=== PATIENT | female | born 1950 | race Hispanic/Latino ===

== ENCOUNTER 2018-11-28 18:23 | Emergency (ER) | payer MEDICAID, MEDICARE ==
--- NOTE | 2018-11-28 18:33 | Emergency Department Report ---
ED Abdominal Pain HPI - General Stated Complaint: ABD PAIN Time Seen by Provider: 11/28/18 18:32 Source: patient Mode of arrival: Stretcher Limitations: No Limitations - History of Present Illness Initial Comments: Patient is a 68-year-old female that presents emergency room with complaints of abdominal pain. Patient states her abdominal pain started 3 weeks ago but is worsening. Patient states she is currently at a psychiatric facility for 1013. Patient states she started having nausea and vomiting 3 days ago. Patient states her pain is worsening. Patient states her pain is 10 out of 10. Patient states it is periumbilical and nonradiating. Patient states she is able to hold some fluids down. Patient states the pain is worse with vomiting and movement and palpation. Patient states the pain is better with rest. MD Complaint: abdominal pain -: Sudden, week(s) Location: periumbilical Radiation: none Migration to: no migration Severity: severe Severity scale (0 -10): 10 Quality: stabbing Consistency: constant Improves With: rest Worsens With: vomiting, movement Associated Symptoms: nausea, vomiting. denies: diarrhea, fever, chills, constipation, dysuria, hematemesis, hematochezia, melena, hematuria, anorexia, syncope - Related Data LMP (females 10-50): unknown Previous Rx's Medication Instructions Recorded Last Taken Type Ciprofloxacin HCl [Ciprofloxacin 500 mg PO Q12HR 10 Days #20 tab 11/28/18 Unknown Rx TAB] Ondansetron [Zofran Odt] 4 mg PO Q6HR PRN #15 tab.rapdis 11/28/18 Unknown Rx Allergies Allergy/AdvReac Type Severity Reaction Status Date / Time No Known Allergies Allergy Verified 11/28/18 18:48 ED Review of Systems ROS: Stated complaint: ABD PAIN Other details as noted in HPI Constitutional: denies: chills, fever Eyes: denies: eye pain, eye discharge, vision change ENT: denies: ear pain, throat pain Respiratory: denies: cough, shortness of breath, wheezing Cardiovascular: denies: chest pain, palpitations Endocrine: no symptoms reported Gastrointestinal: abdominal pain, nausea, vomiting. denies: diarrhea Genitourinary: denies: urgency, dysuria, discharge Musculoskeletal: denies: back pain, joint swelling, arthralgia Skin: denies: rash, lesions Neurological: denies: headache, weakness, paresthesias Psychiatric: denies: anxiety, depression Hematological/Lymphatic: denies: easy bleeding, easy bruising ED Past Medical Hx - Past Medical History Previous Medical History?: Yes Hx Hypertension: Yes Hx CVA: Yes Hx Seizures: Yes Hx Psychiatric Treatment: Yes Additional medical history: hypoThyroidism. Lymphoma in remission since 2016. Anemia. Insomnia. Anxiety. Major depressive disorder. - Surgical History Past Surgical History?: No - Family History Family history: no significant - Social History Smoking Status: Never Smoker Substance Use Type: None - Medications Home Medications: Home Medications Medication Instructions Recorded Confirmed Last Taken Type Ciprofloxacin HCl [Ciprofloxacin 500 mg PO Q12HR 10 Days #20 tab 11/28/18 Unknown Rx TAB] Ondansetron [Zofran Odt] 4 mg PO Q6HR PRN #15 tab.rapdis 11/28/18 Unknown Rx ED Physical Exam - General Limitations: No Limitations General appearance: alert, in no apparent distress - Head Head exam: Present: atraumatic, normocephalic - Eye Eye exam: Present: normal appearance, PERRL Pupils: Present: normal accommodation - ENT ENT exam: Present: mucous membranes moist - Neck Neck exam: Present: normal inspection - Respiratory Respiratory exam: Present: normal lung sounds bilaterally. Absent: respiratory distress - Cardiovascular Cardiovascular Exam: Present: regular rate, normal rhythm. Absent: systolic murmur, diastolic murmur, rubs, gallop - GI/Abdominal GI/Abdominal exam: Present: soft, tenderness (periumbilical tenderness), normal bowel sounds - Extremities Exam Extremities exam: Present: normal inspection - Back Exam Back exam: Present: normal inspection - Neurological Exam Neurological exam: Present: alert, oriented X3 - Psychiatric Psychiatric exam: Present: normal affect, normal mood - Skin Skin exam: Present: warm, dry, intact, normal color. Absent: rash ED Course Vital Signs 11/28/18 11/28/18 18:40 18:46 Temperature 98.7 F Pulse Rate 84 Respiratory 18 Rate Blood Pressure 172/91 Blood Pressure 172/91 151/81 [Left] O2 Sat by Pulse 98 Oximetry - Reevaluation(s) Reevaluation #1: I discussed all results with patient. Patient is stable for discharge. Patient will be discharged home. Patient agrees with plan of care. Patient given discharge instructions. Patient voiced understanding discharge instructions. Patient tolerated by mouth intake. 11/28/18 20:43 Reevaluation #2: Patient states she's had a history of high blood pressure but has not required any medications. Patient's blood pressures elevated is most likely secondary to her situation. Patient will be discharged back to her psych facility and patient is stable to have her blood pressure managed at the psych facility. 11/28/18 21:21 ED Medical Decision Making - Lab Data Result diagrams: 11/28/18 19:06 11/28/18 19:06 - Radiology Data Radiology results: report reviewed CT ABDOMEN AND PELVIS WITH CONTRAST HISTORY: Abdominal Pain. Lower abdominal pain and vomiting today COMPARISON: None. TECHNIQUE: CT images of the abdomen and pelvis were obtained following administration of intravenous contrast. All CT scans at this location are performed using CT dose reduction for ALARA by means of automated exposure control. CONTRAST: 100 ml of intravenous contrast administered. FINDINGS: Lungs/bones: There is mild bibasilar atelectasis. Degenerative changes are present in the spine with no acute osseous abnormality identified. Abdomen/pelvis: The gallbladder appears to be surgically absent and there is pneumobilia likely consistent with previous sphincterotomy. There is mild mid to distal diffuse small bowel mucosal enhancement and fluid-filled appearance without obstruction. The spleen, pancreas, adrenals, and kidneys appear unremarkable. 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 There is a 1.5 cm polyp in the duodenal bulb on axial image #63. The remainder the proximal GI tract is unremarkable. Urinary bladder is unremarkable. Uterus is surgically absent. No pelvic free fluid and no acute colonic abnormality in this patient with mild diverticulosis. IMPRESSION: 1. Small bowel findings as above are nonspecific but can be seen with enteritis. 2. Incidental findings as above including a 1.5 cm duodenal polyp. - Medical Decision Making Patient is a 68-year-old female that presents emergency room with periumbilical ago. A nausea vomiting. Patient's CT done. Patient's CT is consistent with gastroenteritis. Patient's labs unremarkable except for patient found to have a UTI. Patient treated with antibiotics and Zofran. Patient presented to the ER from a local psychiatric facility. Patient was DC'd back. Psychiatric facility. Patient also found to be hypertensive. Patient's diet and lifestyle. Patient given Norvasc 2.5 mg to manage her blood pressure. - Differential Diagnosis abdominal pain. Gastroneuritis. Nausea and vomiting. Critical care attestation.: If time is entered above; I have spent that time in minutes in the direct care of this critically ill patient, excluding procedure time. ED Disposition Clinical Impression: Gastroenteritis UTI (urinary tract infection) Qualifiers: Urinary tract infection type: site unspecified Hematuria presence: without hematuria Qualified Code(s): N39.0 - Urinary tract infection, site not specified Abdominal pain Qualifiers: Abdominal location: periumbilical Qualified Code(s): R10.33 - Periumbilical pain Nausea & vomiting Qualifiers: Vomiting type: unspecified Vomiting Intractability: non-intractable Qualified Code(s): R11.2 - Nausea with vomiting, unspecified Hypertension Qualifiers: Hypertension type: essential hypertension Qualified Code(s): I10 - Essential (primary) hypertension Disposition: TO HOME OR SELFCARE Is pt being admited?: No Does the pt Need Aspirin: No Condition: Stable Instructions: Gastroenteritis (ED), Acute Nausea and Vomiting (ED), Abdominal Pain (ED), DASH Eating Plan (ED), Hypertension (ED) Additional Instructions: to be discharged from the ER or return to her psychiatric facility. Patient to follow up with primary care in 2-3 days. Patient to return to ER if condition worsens. Patient to take meds as directed. Patient increase water. Patient to eat a BRAT diet. Patient to take Tylenol or ibuprofen when necessary for pain. Prescriptions: Ciprofloxacin HCl [Ciprofloxacin TAB] 500 mg PO Q12HR 10 Days #20 tab Ondansetron [Zofran Odt] 4 mg PO Q6HR PRN #15 tab.rapdis PRN Reason: Nausea And Vomiting Referrals: BEKA FORRESTER MD [Referring] - 3-5 Days Time of Disposition: 20:46
[2018-11-28] MEDS ORDERED: ZOFRAN IV ONE (18:41)
[2018-11-28] MEDS ORDERED: NACL 0.9% 1000 ML 1,000 ML IV ONE (18:41)
[2018-11-28 18:56] VITALS: BP 151/81
[2018-11-28 18:56] LABS: Bilirubin,Urine NEG (Negative); Blood,Urine NEG (Negative); Color,Urine Yellow (Yellow); Protein,Urine <15 mg/dL mg/dL (Negative); Urobilinogen,Urine < 2.0 mg/dL (<2.0); WBC,Urine < 1.0 /HPF (0.0-6.0)
[2018-11-28 18:58] LABS: RBC,Urine < 1.0 /HPF (0.0-6.0)
[2018-11-28 19:16] LABS: Basophils # (Auto) 0.1 K/mm3 (0.0-0.1); Basophils % (Auto) 1.2 % (0.0-1.8); Eosinophils # (Auto) 0.2 K/mm3 (0.0-0.4); Hematocrit 28.7 % (30.3-42.9); Hemoglobin 9.3 gm/dl (10.1-14.3); Lymphocytes # (Auto) 2.6 K/mm3 (1.2-5.4); Mean Corpuscular HGB Conc 32 % (30-34); Mean Corpuscular Volume 77 fl (79-97); Monocytes # (Auto) 0.7 K/mm3 (0.0-0.8); Monocytes % (Auto) 9.7 % (0.0-7.3); Platelet Count 354 K/mm3 (140-440); Red Blood Count 3.71 M/mm3 (3.65-5.03); Red Cell Distribution Width 16.9 % (13.2-15.2)
[2018-11-28 19:40] LABS: Alanine Aminotransferase 16 units/L (7-56); Albumin 3.8 g/dL (3.9-5); BUN/Creatinine Ratio 25; Blood Urea Nitrogen 15 mg/dL (7-17); Calcium 8.6 mg/dL (8.4-10.2); Hemolysis Index 0
[2018-11-28] MEDS ORDERED: DILAUDID IV ONE (19:48)
[2018-11-28 20:04] LABS: Bilirubin,Direct < 0.2 mg/dL (0-0.2)
--- NOTE | 2018-11-28 20:34 | Cat Scan Report ---
CT ABDOMEN AND PELVIS WITH CONTRAST HISTORY: Abdominal Pain. Lower abdominal pain and vomiting today COMPARISON: None. TECHNIQUE: CT images of the abdomen and pelvis were obtained following administration of intravenous contrast. All CT scans at this location are performed using CT dose reduction for ALARA by means of automated exposure control. CONTRAST: 100 ml of intravenous contrast administered. FINDINGS: Lungs/bones: There is mild bibasilar atelectasis. Degenerative changes are present in the spine with no acute osseous abnormality identified. Abdomen/pelvis: The gallbladder appears to be surgically absent and there is pneumobilia likely cons istent with previous sphincterotomy. There is mild mid to distal diffuse small bowel mucosal enhancem ent and fluid-filled appearance without obstruction. The spleen, pancreas, adrenals, and kidneys appear unremarkable. 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 There is a 1.5 cm polyp in the duodenal bulb on axial image #63. The remainder the proximal GI tract is unremarkable. Urinary bladder is unremarkable. Uterus is surgically absent. No pelvic free fluid and no acute colon ic abnormality in this patient with mild diverticulosis. IMPRESSION: 1. Small bowel findings as above are nonspecific but can be seen with enteritis. 2. Incidental findings as above including a 1.5 cm duodenal polyp. Signer Name: Rush Burt MD Signed: 11/28/2018 8:30 PM Workstation Name: [id number]
[2018-11-28] MEDS ORDERED: NORVASC PO ONE (21:22)
== END 2018-11-29 | disposition home or self-care (01) ==
LOC: ED 18:23
DX: K52.9 Noninfective gastroenteritis and colitis, unspecified (principal); N39.0 Urinary tract infection, site not specified; I10 Essential (primary) hypertension; E03.9 Hypothyroidism, unspecified; F41.9 Anxiety disorder, unspecified; F32.9 Major depressive disorder, single episode, unspecified; Z86.73 Personal history of transient ischemic attack (TIA), and cerebral infarction without residual deficits; Z86.2 Personal history of diseases of the blood and blood-forming organs and certain disorders involving the immune mechanism
CPT/HCPCS: 36415; 74177; 80048; 80076; 81001; 83690; 85025; 96361; 96374; 96375; 99285; J1170; J2405; J7030; Q9967